=== PATIENT | female | born 1930 | race Caucasian/White ===

== ENCOUNTER 2021-03-21 08:08 | Inpatient (IN) | payer MEDICARE ==
[~2021-03-21 08:08] MED LIST: ASPIRIN E.C. 3325 MG PO; CARVEDILOL6.25 MG PO; CYANOCOBAL1000 MCG/1 IM; DIGOXIN125 MCG PO; DUONEB 2.5-0.5M1 AMP INH; ELAVIL25 MG PO; ESOMEPRAZOLE MA40 MG PO; FAMOTIDINE20 MG PO; FLOVENT HFA12 GM INH; LASIX20 MG PO; LISINOPRIL 20MG20 MG PO; MIRALAX17 G1 PO; NORCO 5-325 TA1 EACH PO; POTASSIUM CHLO10 ME1 PO; PREDNISONE 20MG20 MG PO; STOOL SOFTENER100 M1 PO; TAMIFLU 75MG CA75 MG PO; TESSALON PERLE100 M1 PO; VENTOLIN HFA IN18 GM INH; VITAMIN D2000 UNI1 PO; ZOFRAN8 MG PO
[2021-03-21] MEDS ORDERED: NORCO 5-325 TA1 EACH PO (09:00)
[2021-03-22 07:23] LABS: BASOPHIL 0.5 % (0-2); EOSINOPHIL 0.2 % (0-7); HCT 28.1 % (37.0-47.0); HGB 9.2 g/dl (12.5-16.0); LYMPHOCYTE 14.2 % (15-48); MCH 30.9 pg (25.0-31.0); MCHC 32.7 g/dL (32.0-36.0); MCV 94.3 fL (78.0-100.0); MONOCYTE 11.6 % (0-12); MPV 9.7 fL (6.0-9.5); NRBC 0; PLT 198 K/uL (150-400); RBC 2.98 M/uL (4.20-5.40); RDW 12.8 % (11.5-14.0); WBC 12.8 K/uL (4.0-10.5)
[2021-03-22 07:44] LABS: BUN/CREAT RATIO (CALC) 31.5 RATIO; CREATININE 0.54 mg/dL (0.51-0.95); POTASSIUM 5.2 mmol/L (3.5-5.1)
[2021-03-22] MEDS ORDERED: FEOSOL325 MG PO (09:17)
--- NOTE | 2021-03-22 12:39 | NUR ---
PT. D/C HOME TO THE [facility]. SHE WILL GO TO OUTPT THERAPY AT [facility] WHICH IS ON THE [facility] SHE HAS A ROLLING WALKER AND 01/30.
== END 2021-03-22 13:19 | disposition home or self-care (01) | DRG 467 ==
LOC: FSDC 08:08 → FMS 10:26
PROVIDERS: ADMIT Orthopaedic Surgery
PROC: 0SPC0JZ Removal of Synthetic Substitute from Right Knee Joint, Open Approach (ICD-10-PCS; 2021-03-21)
PROC: 0SRC0J9 Replacement of Right Knee Joint with Synthetic Substitute, Cemented, Open Approach (ICD-10-PCS; principal; 2021-03-21 10:00)
DX: T84.032A Mechanical loosening of internal right knee prosthetic joint, initial encounter (principal); Z68.1 Body mass index [BMI] 19.9 or less, adult; M25.361 Other instability, right knee; R63.6 Underweight; I10 Essential (primary) hypertension; I25.10 Atherosclerotic heart disease of native coronary artery without angina pectoris; Z20.822 Contact with and (suspected) exposure to COVID-19; I48.91 Unspecified atrial fibrillation; J45.909 Unspecified asthma, uncomplicated; Z96.653 Presence of artificial knee joint, bilateral; K22.70 Barrett's esophagus without dysplasia; Z79.899 Other long term (current) drug therapy; Z79.82 Long term (current) use of aspirin; I25.2 Old myocardial infarction
CPT/HCPCS: 36415; 73560; 80048; 85025; 86850; 86860; 86870; 86880; 86900; 86901; 94010; 97110; 97116; 97162; 97166; 97530-GP; 97535; C1713; C1776; J0171; J0697; J1100; J1170; J1885; J2250; J2270; J2405; J2704; J2795; J3010; J7120

== ENCOUNTER 2021-03-27 13:58 | Emergency (ER) | payer MEDICARE ==
[~2021-03-27 13:58] MED LIST changes: +FEOSOL325 MG PO
[2021-03-27 15:13] LABS: BASOPHIL 0.7 % (0-2); EOSINOPHIL 3.5 % (0-7); HCT 28.9 % (37.0-47.0); HGB 9.4 g/dl (12.5-16.0); LYMPHOCYTE 23.8 % (15-48); MCH 30.7 pg (25.0-31.0); MCHC 32.5 g/dL (32.0-36.0); MCV 94.4 fL (78.0-100.0); MONOCYTE 13.7 % (0-12); MPV 9.5 fL (6.0-9.5); NEUTROPHIL 57.6 % (41-80); NRBC 0; PLT 345 K/uL (150-400); RBC 3.06 M/uL (4.20-5.40); RDW 13.2 % (11.5-14.0); WBC 6.9 K/uL (4.0-10.5)
[2021-03-27 15:18] LABS: INR 0.99 (0.9-1.2); PROTHROMBIN TIME 12.4 SECONDS (11.4-13.6); PTT 31.5 SECONDS (22.2-34.7)
[2021-03-27 15:24] LABS: ALBUMIN 3.4 g/dL (3.4-5.0); BILIRUBIN - TOTAL 1.2 mg/dL (0.2-1.0); BUN/CREAT RATIO (CALC) 25.9 RATIO; CREATININE 0.58 mg/dL (0.51-0.95); GLOBULIN (CALCULATION) 3.5 g/dL; MAGNESIUM 1.7 mg/dL (1.8-2.4); POTASSIUM 4.2 mmol/L (3.5-5.1); TOTAL PROTEIN 6.9 g/dL (6.4-8.2)
[2021-03-27 15:32] LABS: PRO-BNP 550 pg/mL (<450)
[2021-03-27 15:33] LABS: D-DIMER 5.19 ug/mLFEU (0.00-0.41)
[2021-03-27 15:34] LABS: LACTIC ACID 1.2 mmol/L (0.4-1.9)
[2021-03-27 15:59] LABS: BILIRUBIN NEGATIVE (NEGATIVE); BLOOD NEGATIVE Ery/uL (NEGATIVE); CLARITY CLEAR (CLEAR); COLOR YELLOW (YELLOW); GLUCOSE (U) NORMAL (NORMAL); LEUKOCYTES NEGATIVE Leu/uL (NEGATIVE); NITRITE NEGATIVE (NEGATIVE); PROTEIN NEGATIVE (NEGATIVE); UROBILINOGEN 0.2 mg/dL (0.2-1.0)
== END 2021-03-27 18:14 | disposition home or self-care (01) ==
LOC: FER 13:58
PROVIDERS: Emergency Medicine
DX: R06.02 Shortness of breath (principal); J44.9 Chronic obstructive pulmonary disease, unspecified; I10 Essential (primary) hypertension; Z88.1 Allergy status to other antibiotic agents; Z88.6 Allergy status to analgesic agent; Z88.8 Allergy status to other drugs, medicaments and biological substances; Z79.82 Long term (current) use of aspirin
CPT/HCPCS: 36415; 71250; 80053; 81003; 83605; 83615; 83735; 83880; 84145; 84484; 85025; 85379; 85610; 85730; 93005